=== PATIENT | female | born 1980 | race Caucasian/White ===

== ENCOUNTER 2016-06-16 15:55 | Observation (INO) ==
[2016-06-16 16:47] LABS: Bilirubin,Urine Small (Negative); Blood,Urine Trace (Negative); Clarity,Urine Clear (Clear); Color,Urine Yellow (Yellow); Glucose,Urine (UA) Normal (Normal); Ketones,Urine Trace mg/dL (Negative); Leukocyte Esterase,Urine Negative (Negative); Nitrite,Urine Negative (Negative); PH,Urine 5.5 pH Units (5.0-8.0); Protein,Urine Trace mg/dL (Neg-Trace); Specific Gravity,Urine 1.026 (1.010-1.025); Urobilinogen,Urine Normal (Normal)
[2016-06-16 16:48] LABS: Bacteria,Urine Moderate per hpf (None-Few); Hyaline Casts,Urine None Seen per lpf (None-Few); Squamous Epithelial Cell,Urine Many per lpf (None-Few)
[2016-06-16 16:51] LABS: Amphetamine Screen,Urine Positive ng/mL (Cutoff=1000); Barbiturate Screen,Urine Negative ng/mL (Cutoff=200); Benzodiazepines Screen,Urine Negative ng/mL (Cutoff=200); Cannabinoid Screen,Urine Positive ng/mL (Cutoff = 50); Cocaine Screen,Urine Positive ng/mL (Cutoff= 300); Opiate Screen,Urine Negative ng/mL (Cutoff=300); Phencyclidine Screen,Urine Negative ng/mL (Cutoff=25)
[2016-06-16 16:52] LABS: Basophils % 0.5 %; Eosinophils # 0.2 K/mcL (0.0-0.6); Hematocrit 43.5 % (35.3-44.9); Hemoglobin 14.4 g/dL (11.5-15.4); Immature Granulocytes % 0.1 % (0-4); Lymphocytes # 2.6 K/mcL (0.6-4.6); Lymphocytes % 32.1 %; Mean Corpuscular HGB Conc 33.1 g/dL (31.6-35.5); Mean Corpuscular Hemoglobin 30.1 pg (28.0-33.3); Mean Platelet Volume 9.6 fL (9.4-12.4); Monocytes # 0.6 K/mcL (0.0-1.3); Monocytes % 7.2 %; Neutrophils # 4.8 K/mcL (1.6-8.9); Platelet Count 229 K/mcL (140-400); Red Blood Count 4.78 M/mcL (3.82-4.97); Red Cell Distribution Width 13.3 % (11.5-14.5); Segmented Neutrophils % 58.1 %
[2016-06-16 16:57] LABS: Calcium Oxalate Crystals,Urine Present; RBC,Urine 0-3 per hpf (0-3)
[2016-06-16 16:58] LABS: BUN/Creatinine Ratio 14 (6-26); Blood Urea Nitrogen 11 mg/dL (7-20); Calcium 9.1 mg/dL (8.6-10.8); Carbon Dioxide 23 mEq/L (19-29); Chloride 109 mEq/L (98-109); Glucose 91 mg/dL (70-99); Osmolality,Calculated 293 (280-300); Potassium 3.4 mEq/L (3.5-4.5); Sodium 142 mEq/L (136-145); eGFR For African Americans > 60 (> 60); eGFR For Non-African Americans > 60 (> 60)
[2016-06-16 17:02] LABS: Acetaminophen < 1.0 mcg/mL (10-30); Ethanol < 10 mg/dL (0-10); Salicylate < 5.0 mg/dL (15-30)
[2016-06-16] MEDS ORDERED: Nicotine 14 MG PATCH.TD24 TD ONE (17:31)
--- NOTE | 2016-06-16 17:48 | Emergency Department Note ---
Disposition Clinical Impression: Suicidal ideation, Anxiety, Depression Disposition: Admitted As Inpatient Condition: Good Time of Disposition: 18:49 (Admitted to 1A ) Psych HPI - General Chief Complaint: ED Psychiatric Symptoms Stated Complaint: psych eval, SI Time Seen by Provider: 06/16/16 16:06 Source: patient, family Mode of arrival: ambulatory Limitations: no limitations Nursing Notes Reviewed: Yes Vital Signs Reviewed: Yes - History of Present Illness HPI Narrative: Patient is a 35-year-old female with past medical history of drug use. She also has self proclaimed history of anxiety and depression, however, she is not been to the doctor that has officially diagnosed her with these. She presents today due to suicidal ideation. She states that she has a specific plan, one of which is involving driving her car in front of a train. She says that she has felt down recently, has been excessively tearful for the past 2-3 days, anxious. She denies any chest pain, shortness of breath, abdominal pain, nausea , vomiting, fevers, diarrhea. She has not taken any medication today in an attempt to hurt herself. She has not performed any self-harm such as cutting. - Related Data Allergies Allergy/AdvReac Type Severity Reaction Status Date / Time Penicillins Allergy See Verified 06/16/16 16:38 Comments All systems ED: reviewed and negative except as stated. Past Medical History - Past Medical History Attestation: Yes The following information was validated with the patient. 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 - Social History Smoking Status: Current every day smoker Smokeless Tobacco Status: No Alcohol use: Reports: rarely Drug use: Reports: cocaine, marijuana Physical Exam - General Limitations: no limitations General appearance: alert, anxious, other (Tearful on exam) - Head Head exam: atraumatic, normocephalic, normal inspection - Eye Eye exam: Present: normal appearance, PERRL, EOMI - ENT ENT exam: normal exam, normal oropharynx, mucous membranes moist - Neck Neck exam: Present: normal inspection, full ROM, trachea midline - Chest Chest inspection: Present: normal inspection, symmetric chest wall rise - Respiratory Respiratory exam: Present: normal lung sounds bilaterally - Cardiovascular Cardiovascular exam: Present: regular rate, normal rhythm, normal heart sounds - Abdominal Exam Abdominal exam: Present: soft, Non-Tender. Absent: tenderness, distention, guarding, rebound, rigidity - Extremities Exam Extremities exam: Present: normal inspection, full ROM. Absent: tenderness, pedal edema - Back Exam Back exam: Present: normal inspection, full ROM. Absent: tenderness - Neurological Exam Neurological exam: Present: alert, oriented X3 - Psychiatric Psychiatric exam: Present: depressed, anxious, flat affect, other (tearful) - Skin Skin exam: Present: warm, dry, intact, normal color Course Course Narrative: Vitals within normal limits. Physical exam was benign. Patient does have suicidal ideation with multiple plans. We will obtain psychiatric clearance labs and then have 1A evaluate her. 17:30 patient cleared for evaluation by psychiatry. She was positive for cocaine, amphetamines, marijuana use. Otherwise, labs non concerning. 18:45 psychiatry team has decided to admit the patient for further care. Stable prior to admission. Vital Signs Temperature 98.3 F 06/16/16 16:02 Pulse Rate 81 06/16/16 16:02 Respiratory Rate 17 06/16/16 16:02 Blood Pressure 111/77 06/16/16 16:02 O2 Sat by Pulse Oximetry 99 06/16/16 16:02 Temperature 98.3 F 06/16/16 16:02 Pulse Rate 81 06/16/16 16:02 Respiratory Rate 17 06/16/16 18:51 Blood Pressure 137/93 06/16/16 18:51 O2 Sat by Pulse Oximetry 99 06/16/16 16:02 Oxygen Delivery Oxygen Delivery Room Air Psych - MDM Narrative Medical decision making narrative: Vitals within normal limits. Physical exam was benign. Patient does have suicidal ideation with multiple plans. We will obtain psychiatric clearance labs and then have 1A evaluate her. 17:30 patient cleared for evaluation by psychiatry. She was positive for cocaine, amphetamines, marijuana use. Otherwise, labs non concerning. 18:45 psychiatry team has decided to admit the patient for further care. Stable prior to admission. - Medical Records Medical records reviewed: Yes I reviewed the patient's medical records. - Lab Data Result diagrams: 06/16/16 16:37 06/16/16 16:37 Lab Results 06/16/16 06/16/16 06/16/16 Range/Units 16:33 16:33 16:33 WBC (4.3-11.1) K/mcL RBC (3.82-4.97) M/mcL Hgb (11.5-15.4) g/dL Hct (35.3-44.9) % MCV (83.0-100.0) fL MCH (28.0-33.3) pg MCHC (31.6-35.5) g/dL RDW (11.5-14.5) % Plt Count (140-400) K/mcL MPV (9.4-12.4) fL Immature Gran % (0-4) % Seg Neutrophils % % Lymphocytes % % Monocytes % % Eosinophils % % Basophils % % Neutrophils # (1.6-8.9) K/mcL Lymphocytes # (0.6-4.6) K/mcL Monocytes # (0.0-1.3) K/mcL Eosinophils # (0.0-0.6) K/mcL Basophils # (0.0-0.2) K/mcL Sodium (136-145) mEq/L Potassium (3.5-4.5) mEq/L Chloride (98-109) mEq/L Carbon Dioxide (19-29) mEq/L BUN (7-20) mg/dL Creatinine (0.57-1.11) mg/dL Est GFR ( Amer) (> 60) Est GFR (Non-Af Amer) (> 60) BUN/Creatinine Ratio (6-26) Glucose (70-99) mg/dL Calculated Osmolality (280-300) Calcium (8.6-10.8) mg/dL Urine Color Yellow (Yellow) Urine Clarity Clear (Clear) Urine pH 5.5 (5.0-8.0) pH Units Ur Specific [place] 1.026 H (1.010-1.025) Urine Protein Trace (Neg-Trace) mg/dL Urine Glucose (UA) Normal (Normal) mg/dL Urine Ketones Trace H (Negative) mg/dL Urine Blood Trace H (Negative) Urine Nitrite Negative (Negative) Urine Bilirubin Small H (Negative) Urine Urobilinogen Normal (Normal) mg/dL Ur Leukocyte Esterase Negative (Negative) Urine Microscopic RBC 0-3 (0-3) per hpf Urine Microscopic WBC 5-15 H (0-3) per hpf Ur Squamous Epith Cells Many H (None-Few) per lpf Calcium Oxalate Crystal Present Urine Bacteria Moderate H (None-Few) per hpf Hyaline Casts None Seen (None-Few) per lpf Urine Test Negative (Negative) Salicylates (15-30) mg/dL Urine Opiates Screen Negative (Tcezgn=855) ng/mL Acetaminophen (10-30) mcg/mL Ur Barbiturates Screen Negative (Rijada=576) ng/mL Ur Phencyclidine Scrn Negative (Cutoff=25) ng/mL Ur Amphetamines Screen Positive H (Wmrtbx=8122) ng/mL U Benzodiazepines Scrn Negative (Ichcae=039) ng/mL Urine Cocaine Screen Positive H (Cutoff= 300) ng/mL U Marijuana (THC) Screen Positive H (Cutoff = 50) ng/mL Ethyl Alcohol (0-10) mg/dL 06/16/16 06/16/16 Range/Units 16:37 16:37 WBC 8.2 (4.3-11.1) K/mcL RBC 4.78 (3.82-4.97) M/mcL Hgb 14.4 (11.5-15.4) g/dL Hct 43.5 (35.3-44.9) % MCV 91.0 (83.0-100.0) fL MCH 30.1 (28.0-33.3) pg MCHC 33.1 (31.6-35.5) g/dL RDW 13.3 (11.5-14.5) % Plt Count 229 (140-400) K/mcL MPV 9.6 (9.4-12.4) fL Immature Gran % 0.1 (0-4) % Seg Neutrophils % 58.1 % Lymphocytes % 32.1 % Monocytes % 7.2 % Eosinophils % 2.0 % Basophils % 0.5 % Neutrophils # 4.8 (1.6-8.9) K/mcL Lymphocytes # 2.6 (0.6-4.6) K/mcL Monocytes # 0.6 (0.0-1.3) K/mcL Eosinophils # 0.2 (0.0-0.6) K/mcL Basophils # 0.0 (0.0-0.2) K/mcL Sodium 142 (136-145) mEq/L Potassium 3.4 L (3.5-4.5) mEq/L Chloride 109 (98-109) mEq/L Carbon Dioxide 23 (19-29) mEq/L BUN 11 (7-20) mg/dL Creatinine 0.78 (0.57-1.11) mg/dL Est GFR ( Amer) > 60 (> 60) Est GFR (Non-Af Amer) > 60 (> 60) BUN/Creatinine Ratio 14 (6-26) Glucose 91 (70-99) mg/dL Calculated Osmolality 293 (280-300) Calcium 9.1 (8.6-10.8) mg/dL Urine Color (Yellow) Urine Clarity (Clear) Urine pH (5.0-8.0) pH Units Ur Specific [place] (1.010-1.025) Urine Protein (Neg-Trace) mg/dL Urine Glucose (UA) (Normal) mg/dL Urine Ketones (Negative) mg/dL Urine Blood (Negative) Urine Nitrite (Negative) Urine Bilirubin (Negative) Urine Urobilinogen (Normal) mg/dL Ur Leukocyte Esterase (Negative) Urine Microscopic RBC (0-3) per hpf Urine Microscopic WBC (0-3) per hpf Ur Squamous Epith Cells (None-Few) per lpf Calcium Oxalate Crystal Urine Bacteria (None-Few) per hpf Hyaline Casts (None-Few) per lpf Urine Test (Negative) Salicylates < 5.0 L (15-30) mg/dL Urine Opiates Screen (Wqamkd=174) ng/mL Acetaminophen < 1.0 L (10-30) mcg/mL Ur Barbiturates Screen (Wuehxy=696) ng/mL Ur Phencyclidine Scrn (Cutoff=25) ng/mL Ur Amphetamines Screen (Epmyfj=6693) ng/mL U Benzodiazepines Scrn (Txjxbo=244) ng/mL Urine Cocaine Screen (Cutoff= 300) ng/mL U Marijuana (THC) Screen (Cutoff = 50) ng/mL Ethyl Alcohol < 10 (0-10) mg/dL Psychiatric Medical Clearance - Medical Clearance Checklist Does the patient have a NEW psychiatric condition?: Yes Any abnormalities indicating possible medical illness?: No Any history of medical issues?: No Medical History: No Social History Section defined Current Vitals: Last Vital Signs Temp 98.3 F 06/16/16 16:02 Pulse 81 06/16/16 16:02 Resp 17 06/16/16 18:51 BP 137/93 06/16/16 18:51 Pulse Ox 99 06/16/16 16:02 Is the patient intoxicated or cognitively impaired?: No Psychiatric Lab Panel: Drug Levels and Toxicity 06/16/16 06/16/16 16:33 16:37 Urine Opiates Screen Negative Acetaminophen < 1.0 L Ur Barbiturates Screen Negative Ur Phencyclidine Scrn Negative Ur Amphetamines Screen Positive H U Benzodiazepines Scrn Negative Urine Cocaine Screen Positive H U Marijuana (THC) Screen Positive H Ethyl Alcohol < 10 Any abnormalities on the physical exam?: No Any abnormal labs?: Yes (positive drug scree) Abnormal Labs: Abnormal lab results Potassium 3.4 mEq/L (3.5-4.5) L 06/16/16 16:37 Ur Specific Mckenna 1.026 (1.010-1.025) H 06/16/16 16:33 Urine Ketones Trace mg/dL (Negative) H 06/16/16 16:33 Urine Blood Trace (Negative) H 06/16/16 16:33 Urine Bilirubin Small (Negative) H 06/16/16 16:33 Urine Microscopic WBC 5-15 per hpf (0-3) H 06/16/16 16:33 Ur Squamous Epith Cells Many per lpf (None-Few) H 06/16/16 16:33 Urine Bacteria Moderate per hpf (None-Few) H 06/16/16 16:33 Salicylates < 5.0 mg/dL (15-30) L 06/16/16 16:37 Acetaminophen < 1.0 mcg/mL (10-30) L 06/16/16 16:37 Ur Amphetamines Screen Positive ng/mL (Llutco=0510) H 06/16/16 16:33 Urine Cocaine Screen Positive ng/mL (Cutoff= 300) H 06/16/16 16:33 U Marijuana (THC) Screen Positive ng/mL (Cutoff = 50) H 06/16/16 16:33 Does the patient require durable medical equiptment?: No Is the patient ambulatory?: Yes Is the patient a fall risk?: No Has the patient been medically cleared?: Yes Any acute medical condition require Tx prior to transfer?: No Attestation Statement - Attestation Attestation: Patient was seen with resident physician. I reviewed the history, physical, assessment and plan, and agree with the findings. I also personally evaluated this patient and had [id number] time with this patient. 35-year-old female presents to emergency Department chief complaint suicidal ideation. She has a history of drug use. She has self diagnosed depression and anxiety, but she has never been formally diagnosed and has never taken medications. She admits to cocaine and marijuana. She says the last month or so should be getting increasingly more depressed she has several plans to kill herself one of which involves driving her car into a train. No nausea vomiting diarrhea chest pain or shortness of breath. Review of systems is otherwise unremarkable. On examination ENT is normal. Heart and lungs normal. Abdomen soft nontender. Extremities unremarkable. Psychiatry she is tearful and appears somewhat depressed. Neurologically she is alert and oriented and otherwise intact. Lab workup revealed polysubstance abuse, but her labs are essentially unremarkable. Urine was contaminated but did not show any obvious signs of infection. Will have psychiatry evaluate and disposition this patient. After their evaluation agreed to admit the patient to the psychiatric [facility] here at [place]. I agree with resident physician assessment and plan.
[2016-06-16] MEDS ORDERED: *HR* LORazepam 1 MG TABLET PO PRN (23:00)
[2016-06-16] MEDS ORDERED: Acetaminophen 325 MG TABLET PO PRN (23:00)
[2016-06-16] MEDS ORDERED: traZODone 50 MG TABLET PO PRN (23:00)
[2016-06-16] MEDS ORDERED: hydrOXYzine pamoate 25 MG CAPSULE PO PRN (23:00)
[2016-06-16] MEDS ORDERED: Mag Hydrox/Al Hydrox/Simeth 30 ML UDC PO PRN (23:00)
[2016-06-16] MEDS ORDERED: *HR* LORazepam 2 MG/ML VIAL IM PRN (23:00)
[2016-06-16] MEDS ORDERED: MOM Conc 10 ML UD.LIQ PO PRN (23:00)
[2016-06-16] MEDS ORDERED: Haloperidol Lactate 5 MG/ML VIAL IM PRN (23:00)
[2016-06-17 09:10] VITALS: BP 119/75
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
== END 2016-06-17 17:55 | disposition home or self-care (01) ==
LOC: EMEROO 15:55 → SUATTDRO 18:47 → 1ANU 18:47 → INTOOBSV 18:47 → 1ANU 19:03
PROVIDERS: ADMIT Psychiatry & Neurology Psychiatry; ATTEND Psychiatry & Neurology Psychiatry